=== PATIENT | female | born 1960 | race Caucasian/White ===

== ENCOUNTER 2018-03-25 14:14 | Emergency (ER) | payer MEDICAID ==
[~2018-03-25] VITALS: Ht 162.6 cm; Wt 63.5 kg
[~2018-03-25 14:14] MED LIST: DOXEPIN HCL10 MG ORAL; FOLIC ACID1 MG ORAL; LEXAPRO10 MG ORAL; LIBRIUM25 MG ORAL; LISINOPRIL20 MG ORAL; LISINOPRIL40 MG ORAL; MELOXICAM15 MG PO; NAPROXEN375 M2 ORAL; SIMVASTATIN20 MG ORAL; THIAMINE HCL100 MG ORAL; ZANTAC150 MG ORAL
[2018-03-25] MEDS ORDERED: CARVEDILOL6.25 MG ORAL (14:29)
--- NOTE | 2018-03-25 14:46 | Emergency Room Report ---
History of Present Illness General Chief Complaint: General Complaint Present Illness HPI 57-year-old female presents emergency department complaining of increased anxiety and needing refill for her antianxiety medication Valium. Patient describes that she has history of alcoholism and the last 3 months she relapsed and has been binge drinking every day. Patient reports that she stopped cold turkey 6 days ago and her anxiousness has progressed and she is not able to "take it anymore" patient reports that she is not able to get an appointment with her doctor and he does not take walk-ins. Patient denies history of alcohol withdrawal seizures. reports previous ED visit for ETOH intoxication where she made suicidal comments but she reports she did not really mean them and was not put on hold. Patient denies SI or HI, auditory or visual hallucinations. Allergies: Coded Allergies: No Known Allergies (Unverified , 01/11/16) Patient History Past Medical History: see triage record Past Surgical History: none Pertinent Family History: none Reviewed Nursing Documentation: PMH: Agreed; PSxH: Agreed Nursing Documentation-PMH Hx Hypertension: Yes Review of Systems All Other Systems: negative except mentioned in HPI Physical Exam Vital Signs Date Time Temp Pulse Resp B/P (MAP) Pulse Ox O2 Delivery O2 Flow Rate FiO2 03/25/18 14:23 98.6 69 18 167/94 96 Room Air 98.6 Sp02 EP Interpretation: reviewed, normal General Appearance: no apparent distress, alert, GCS 15, non-toxic Head: normocephalic, atraumatic Eyes: bilateral eye normal inspection, bilateral eye PERRL ENT: hearing grossly normal, normal voice Neck: full range of motion Respiratory: lungs clear, normal breath sounds, speaking full sentences Cardiovascular #1: regular rate, rhythm Musculoskeletal: back normal, gait/station normal, normal range of motion Neurologic: alert, oriented x3, responsive, motor strength/tone normal, sensory intact, normal gait, speech normal, grossly normal Psychiatric: judgement/insight normal, no suicidal/homicidal ideation, other - no obvious signs of clinical anxiousness, no tremors Skin: normal color, no rash, warm/dry, well hydrated Medical Decision Making PA Attestation Dr. Lord is my supervising Physician whom patient management has been discussed with. Diagnostic Impression: Primary Impression: Anxiousness Additional Impressions: History of alcohol dependence Encounter for medication refill ER Course 57-year-old female presents emergency department complaining of increased anxiety and needing refill for her antianxiety medication Valium. Patient describes that she has history of alcoholism and the last 3 months she relapsed and has been binge drinking every day. Patient reports that she stopped cold turkey 6 days ago and her anxiousness has progressed and she is not able to "take it anymore" patient reports that she is not able to get an appointment with her doctor and he does not take walk-ins. Patient denies history of alcohol withdrawal seizures. reports previous ED visit for ETOH intoxication where she made suicidal comments but she reports she did not really mean them and was not put on hold. Patient denies SI or HI, auditory or visual hallucinations. Ddx considered but are not limited to: drug seeking, OD, SI, Acute anxiety/ panic attack, alcohol w/d seizures Vital signs: are WNL, pt. is afebrile H&PE are most consistent with non emergent request for medication refill. ORDERS: none required at this time, the diagnosis is clinical ED INTERVENTIONS: -Ativan 1mg PO ---Review of this patients previous diagnosis and charts this pt. is at high risk for substance abuse/misuse. -- review of this pt. CURES report whos pt. rx'd valium consistently x 3 months by same doctor at the same time. this last quantity however was only 10, pt. would be out of medication by this time. given Hx of substance misuse I feel this pt. should be managed by her primary prescribing provider for safety. At this time no obvious adverse w/d symptoms or clinical anxiety attack. I discussed with this patient that being 6 days out from her last alcohol intake with drawl seizures are unlikely at this time. Discussed the patient also that the medication she is requesting is a controlled substance and needs to be prescribed by her primary care provider/psychiatrist to has been managing her. I discussed with patient that I will give her some medication here to help with her symptoms and I will prescribe her a small amount of a anti-inside E medication that does not have addictive properties. I also discussed the patient that if she is unable to get a timely appointment with her primary prescribing provider that she can also utilize [facility] urgent care as a resource for medication management and psychiatric evaluation. DISCHARGE: At this time pt. is stable for d/c to home. Will provide printed patient care instructions, and any necessary prescriptions. Care plan and follow up instructions have been discussed with the patient prior to discharge. Last Vital Signs Date Time Temp Pulse Resp B/P (MAP) Pulse Ox O2 Delivery O2 Flow Rate FiO2 03/25/18 14:23 98.6 69 18 167/94 96 Room Air 98.6 Disposition: HOME, SELF-CARE Condition: Stable Scripts Buspirone Hcl* (BUSPAR*) 10 Mg Tablet 10 MG ORAL THREE TIMES A DAY, #15 TAB 0 Refills Prov: Anahi Valdes 03/25/18 Patient Instructions: Medicine Refill at the Emergency Department Additional Instructions: Take medications as directed. Follow up with your Primary Prescribing Provider/psychiatrist in 3-5 days, even if your symptoms have resolved. --Please review list of primary care clinics, if you do not already have a primary care provider Return sooner to ED if new symptoms occur, or current symptoms become worse. Do not drink alcohol, drive, or operate heavy machinery while taking Buspar / anti-anxiety medication as this may cause drowsiness. - Please note that this Emergency Department Report was dictated using [employer] travel consultant technology software, occasionally this can lead to erroneous entry secondary to interpretation by the dictation equipment. Anahi Valdes Mar 25, 2018 14:46
[2018-03-25] MEDS ORDERED: BUSPAR10 MG ORAL (14:56)
[2018-03-25] MEDS ORDERED: LORazepam 1mg tab ORAL ONE (15:00)
[2018-03-25 15:02] VITALS: BP 167/94
== END 2018-03-25 16:24 | disposition home or self-care (01) ==
LOC: EMR 14:52
DX: F41.9 Anxiety disorder, unspecified (principal); F10.20 Alcohol dependence, uncomplicated; Z76.0 Encounter for issue of repeat prescription; I10 Essential (primary) hypertension
CPT/HCPCS: 99283